=== PATIENT | female | born 1955 | race Caucasian/White ===

== ENCOUNTER 2018-03-01 13:04 | Outpatient (CLI) | payer BC | END 2018-03-01 13:05 | disposition home or self-care (01) | LOC: BICMAMMO 13:04 | PROVIDERS: ATTEND Advanced Practice Midwife | DX: Z12.31 Encounter for screening mammogram for malignant neoplasm of breast (principal) | CPT/HCPCS: 77063; 77067 ==

== ENCOUNTER 2018-04-11 10:41 | Outpatient (CLI) | payer BC ==
--- NOTE | 2018-04-11 13:37 | BD ---
DEXA BONE DENSITY STUDY: Date: 04/11/18 HISTORY: 63-year-old female, screening for osteoporosis, menopausal. FINDINGS: Lumbar Spine: BMD (g/cm2) L1 0.963 T-Score: -0.2 L2 0.919 T-Score: -1.0 L3 0.893 T-Score: -1.7 L4 0.980 T-Score: -0.7 L1-L4 0.940 T-Score: -1.0 Within normal limits with no increased risk for fracture. Femoral Neck: 0.820 T-Score: -0.3 Total Femur: 1.066 T-Score: 1.0 Within normal limits with no increased risk for fracture. FRAX scores not reported because all T-Scores are at or above -1.0. POS: [facility]
== END 2018-04-11 10:42 | disposition home or self-care (01) ==
LOC: BICMAMMO 10:41
PROVIDERS: ATTEND Advanced Practice Midwife
DX: Z13.820 Encounter for screening for osteoporosis (principal)
CPT/HCPCS: 77080